=== PATIENT | male | born 1985 | race Two or more races ===

== ENCOUNTER 2022-08-25 14:03 | Emergency (ER) | payer OTHER ==
[2022-08-25 14:17] VITALS: BP 150/96; PULSE 86; RESP 18; TEMP 98.2; BMI 32.1
[2022-08-25 15:37] LABS: BASO % 0.8 % (0-2.0); EOS % 1.2 % (0-4.5); HEMATOCRIT 41.8 % (35.4-49); HEMOGLOBIN 15.1 GM/dL (11.7-16.9); MCH 32.4 pg (25.7-33.7); MCHC 36.2 g/dl (32.0-35.9); MEAN CELL VOLUME 89.5 fl (80-96); MEAN PLT VOLUME 7.9 fl (7.5-11.1); MONO % 6.4 % (3.8-10.2); NEUT % 56.6 % (42.8-82.8); PH,URINE 6.5 (5.0-8.0); PLATELET COUNT 241 10^3/uL (134-434); RBC 4.67 M/mm3 (4.00-5.60); RDW 12.8 % (11.9-15.9); URINE APPEARANCE CLEAR; URINE BILIRUBIN NEGATIVE (NEGATIVE); URINE COLOR YELLOW; URINE GLUCOSE (UA) NEGATIVE (NEGATIVE); URINE KETONE NEGATIVE (NEGATIVE); URINE LEUK ESTERASE NEGATIVE (NEGATIVE); URINE NITRITE NEGATIVE (NEGATIVE); URINE PROTEIN NEGATIVE (NEGATIVE); URINE UROBILINOGEN 0.2 mg/dL (0.2-1.0); WHITE BLOOD COUNT 4.6 K/mm3 (4.0-10.0)
[2022-08-25 16:04] LABS: POTASSIUM 4.3 mmol/L (3.5-5.1)
[2022-08-25 16:09] LABS: ALBUMIN 3.5 g/dl (3.4-5.0); BLOOD UREA NITROGEN 17.8 mg/dL (7-18); CALCIUM 9.2 mg/dL (8.5-10.1)
[2022-08-25 16:12] LABS: CREATININE 0.8 mg/dL (0.55-1.3)
[2022-08-25 16:15] LABS: BILIRUBIN,TOTAL 0.4 mg/dL (0.2-1); TOT PROT 6.9 g/dl (6.4-8.2)
== END 2022-08-25 17:12 | disposition home or self-care (01) ==
LOC: JER 14:03
DX: R10.9 Unspecified abdominal pain (principal)
CPT/HCPCS: 36415; 74176-TC; 80053; 81003; 85025; 99284-25